=== PATIENT | male | born 1995 | race Caucasian/White ===

== ENCOUNTER 2021-09-25 10:29 | Emergency (ER) | payer OTHER ==
[~2021-09-25] VITALS: Ht 170.2 cm; Wt 76.2 kg
[2021-09-25 10:32] VITALS: BP 161/109
[2021-09-25 10:53] VITALS: BP 161/109
--- NOTE | 2021-09-25 10:53 | NUR ---
Patient discharged with v/s stable. Written and verbal after care instructions given and explained. Patient verbalized understanding. Police with in custody. All questions addressed prior to discharge. Advised to follow up with PMD.
== END 2021-09-25 10:53 ==
LOC: MED 10:29
DX: S00.01XA Abrasion of scalp, initial encounter (principal); R45.6 Violent behavior; Z02.89 Encounter for other administrative examinations; Y04.0XXA Assault by unarmed brawl or fight, initial encounter; Y93.89 Activity, other specified; Y92.810 Car as the place of occurrence of the external cause; Y99.8 Other external cause status
CPT/HCPCS: 99283